=== PATIENT | female | born 1935 | race Caucasian/White ===

== ENCOUNTER 2017-04-08 11:07 | Outpatient (CLI) | payer MEDICARE ==
--- NOTE | 2017-04-08 19:28 | PET ---
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 COMPARISON: 09/03/16. TECHNIQUE: IV injection F-18 Fluorodeoxyglucose (FDG) dose: 13.5 mCi PET and attenuation-correction CT performed from skull base to proximal thighs. Separate PET scan and attenuation correction CT also performed for the entire head and neck. FINDINGS: SUV (standard uptake value) numbers given are maximum SUV's: Previously, there was a moderate sized mass at the right base of tongue, completely effacing the rig ht glossopharyngeal sulcus, extending into the adjacent right posterolateral oropharyngeal wall, whi ch was very hypermetabolic, with SUV of 10.2. The size of the tumor has decreased significantly, but there is residual hypermetabolic activity in this location with SUV of 6.0. Previously, there was some hypermetabolic activity in the contralateral left posterolateral orophary ngeal wall with SUV of 5.5. This has essentially resolved (current SUV of approximately 2.5). The previous focus of asymmetrically increased uptake in the left submandibular gland with SUV of ap proximately 4.6 has resolved (current SUV 2.2). There are no hypermetabolic cervical lymph nodes. Since the prior study, a percutaneous endoscopic gastrostomy tube has been placed into the stomach. There is a tiny new left pleural effusion. There are no areas suspicious for metastasis in the chest , abdomen, or pelvis. IMPRESSION: 1. Interval improvement, but still viable residual hypermetabolic neoplastic tumor, lining the righ t glossopharyngeal sulcus, including the right lateral tongue base. 2. No cervical lymphadenopathy. 3. No distant metastasis. CHEYENNE Givens POS: [facility]INT
== END 2017-04-08 11:08 | disposition home or self-care (01) ==
LOC: PET 11:07
PROVIDERS: ATTEND Radiology Radiation Oncology
DX: C01 Malignant neoplasm of base of tongue (principal)
CPT/HCPCS: 78815; A9552

== ENCOUNTER 2017-07-10 10:38 | Outpatient (CLI) | payer MEDICARE ==
--- NOTE | 2017-07-10 15:27 | PET ---
RADIONUCLIDE PET SCAN WITH CT ATTENUATION CORRECTION IMAGES: History: Tongue cancer. Re-staging. Comparison: 04-08-17 FINDINGS: Physiologic uptake is present throughout the enteric system and along each urinary tract. Hypermetabo lic activity associated with the mass at the right base of the tongue shows a maximum SUV of 5.7 (pre viously 6.0). The mass effaces the right glossopharyngeal sulcus. No hypometabolic activity is now seen at the left posterolateral oropharyngeal wall or the left subma ndibular gland. No abnormal uptake is associated with cervical lymph nodes. Remainder of the body shows no abnormal hypermetabolic activity. IMPRESSION: 1. Stable PET appearance of the right posterior tongue lesion. No new abnormalities are demonstrated. POS: [facility]
== END 2017-07-10 10:39 | disposition home or self-care (01) ==
LOC: PET 10:38
PROVIDERS: ATTEND Otolaryngology Plastic Surgery within the Head & Neck
DX: C02.9 Malignant neoplasm of tongue, unspecified (principal)
CPT/HCPCS: 78815; A9552